=== PATIENT | male | born 1965 | race Caucasian/White ===

== ENCOUNTER 2017-07-11 20:50 | Emergency (ER) | payer OTHER ==
[~2017-07-11] VITALS: Ht 170.2 cm; Wt 81.8 kg
[2017-07-11 21:08] VITALS: Ht 170.2 cm; Wt 81.8 kg
[2017-07-11] MEDS ORDERED: BACITRACIN 0.9 GM OINT TOP ONE (22:00)
[2017-07-11] MEDS ORDERED: DIPHTH/TET/ACEL PERTUSS (ADULT) 0.5 ML VIAL IM* ONE (22:00)
[2017-07-11] MEDS ORDERED: HYDROCODONE/APAP (5/325) TAB PO ONE (22:00)
[2017-07-11] MEDS ORDERED: AMOXICILLIN/CLAV 875 MG TAB PO ONE (22:00)
[2017-07-11] MEDS ORDERED: BACITUD TOP (23:28)
--- NOTE | 2017-07-11 23:28 | ERD ---
ER Documentation Chief Complaint Date/Time DATE: 07/11/17 Chief Complaint Dog bite right foot HPI The patient is a 52-year-old male who presents to the Emergency Department with complaint of dog bite to his right foot. The patient reports that he was stepping down from his bed, when he accidentally stepped on his dog (lab/ lexiepaOnde), and his dog bit him on his right foot. He notes presence of a puncture wound to the plantar aspect of the foot, and an abrasion to the dorsum of the second toe. He states that initially, the wounds were bleeding, but after application of a pressure dressing, the bleeding has since resolved. He admits to associated pain, rated 7/10 in intensity, but notes that he has not yet taken any medication for pain relief. The dog is fully vaccinated, though the patient notes that he himself is not up-to-date on tetanus, and therefore decided to present to the ED to update his tetanus. He denies any numbness, paresthesia or weakness of the distal extremity. Denies restricted range of motion. Denies fevers, sweats, chills, nausea, vomiting, or any other complaints at this time. ROS All systems reviewed and are negative except as per history of present illness. Medications Home Meds Active Scripts Hydrocodone/Acetaminophen ([place] 5-325 Tablet) 1 Each Tablet, 1 EACH PO Q6, #6 TAB Prov:JOON KELLEY PA-C 07/11/17 Ibuprofen* (Motrin*) 600 Mg Tab, 600 MG PO Q6, #30 TAB Prov:JOON KELLEY PA-C 07/11/17 Amoxicillin/Potassium Clav (Amox-Clav 875-125 mg Tablet) 875-125 mg Tab, 1 TAB PO BID for 7 Days, #14 TAB Prov:JOON KELLEY PA-C 07/11/17 Bacitracin* (Bacitracin Oint (UD)*) 1 Applic Oint, 1 APPLIC TOP BID for 7 Days, PKT APPLY TO Prov:JOON KELLEY PA-C 07/11/17 Allergies Allergies: Coded Allergies: No Known Allergy (Unverified , 07/11/17) PMhx/Soc Medical and Surgical Hx: pt denies Medical Hx, pt denies Surgical Hx Hx Alcohol Use: Yes Hx Substance Use: No Hx Tobacco Use: Yes Smoking Status: Current some day smoker Physical Exam Vitals Vital Signs Date Time Temp Pulse Resp B/P Pulse Ox O2 Delivery O2 Flow Rate FiO2 07/11/17 21:08 98.9 120 18 173/107 95 Physical Exam Const: Well-developed, well-nourished, in no acute distress. Head: Atraumatic Eyes: Normal Conjunctiva ENT: Normal External Ears, Nose and Mouth. Neck: Supple. Resp: Clear to auscultation bilaterally Cardio: Regular rate and rhythm Abd: Soft, non tender, non distended. Skin: Superficial puncture wound to plantar aspect of right foot, near forefoot. Abrasion to proximal toe of right foot. No active bleeding. No foreign bodies. Ext: No clubbing, cyanosis, or edema. Dog bite to right foot - with puncture wound to plantar aspect and abrasion to dorsum. No active bleeding. Moving all toes. Sensation and motor grossly intact. Distal neurovascular status intact. DP and PT pulses 2+. Capillary refill is less than 2 seconds. Neur: Awake and alert Psych: Cooperative. Appropriate. Results 24 hrs Current Medications Medications (Trade) Dose Ordered Sig/[place] Route PRN Reason Start Time Stop Time Status Last Admin Dose Admin Diphtheria/ Tetanus/Acell Pertussis (Adacel) 0.5 ml ONCE ONCE IM* 07/11/17 22:00 07/11/17 22:03 DC 07/11/17 22:17 Acetaminophen/ Hydrocodone Bitart ([place] (5/325)) 1 tab ONCE ONCE PO 07/11/17 22:00 07/11/17 22:03 DC 07/11/17 22:17 Amoxicillin/ Clavulanate Potassium (Augmentin) 875 mg ONCE ONCE PO 07/11/17 22:00 07/11/17 22:03 DC 07/11/17 22:26 Bacitracin (Bacitracin Oint (Ud)) 1 applic ONCE ONCE TOP 07/11/17 22:00 07/11/17 22:03 DC 07/11/17 22:18 Procedures/MDM EMERGENCY DEPARTMENT COURSE: The patient was stable throughout the ED course. Tdap administered. The patient's wounds were thoroughly irrigated. No evidence of retained foreign body. X-ray imaging performed. Bacitracin and sterile dressing placed to the wounds. He was given a dose of [place], for pain, and his first dose of Augmentin (for prophylaxis) while in the ED. On reevaluation, the patient reports no new complaints. Appropriate wound care discussed, return precautions given. DIAGNOSTIC TESTS AND INTERPRETATION: PROCEDURE: XR Foot. CLINICAL INDICATION: Trauma. TECHNIQUE: AP, lateral and oblique views of the right foot was obtained. COMPARISON: There are no similar studies submitted for comparison. FINDINGS: There is normal bone mineralization. There is no acute fracture or dislocation. No osseous erosions are identified. The joint spaces are within normal limits. No radiopaque foreign bodies are seen. IMPRESSION:No acute fracture or dislocation. .Delgado Adams MD, MD Date Time Electronically viewed and signed by .Delgado Adams MD, on 07/12/2017 01:08 MEDICAL DECISION MAKING: This is a 52-year-old male presenting to the Emergency Department with abrasion and puncture wound status post dog bite to his lower extremity. The patient had no other abnormalities on physical examination. X-rays revealed no presence of retained foreign bodies, fractures , avulsions, gas or any other bony involvement. As the patient's abrasions and puncture wounds were minimal, they were copiously irrigated and bacitracin was applied. There was no need to close them as they were somewhat superficial with no current active bleeding. No large lacerations or skin avulsions present. Tdap was administered. After rest and administration of [place] and Augmentin, the patient reports no new complaints. Vital signs improved. Upon my review and interpretation of the patient's presentation and overall ER course, I believe the patient's symptoms are most consistent with wounds due to dog bite. There are no current signs of tendon laceration, tenosynovitis, large lacerations, open fracture, infection, retained foreign body or any other emergent medical condition. At this time, the patient is in stable condition and therefore can be discharged home with a prescription for [place], Bacitracin, Ibuprofen and Augmentin as prophylaxis, and strict return precautions for signs of infectious process, worsening or deteriorating condition. The patient has been instructed to follow up with a primary care provider for wound check, reevaluation and further management within 2 days or to return to the ER sooner for any worsening symptoms, including development of redness, warmth, swelling, drainage, fevers, vomiting, or any other concerning symptoms. I shared my medical decision making and plan with the patient at length and in great detail , and the patient verbally understands and agrees with the plan for further observation and care as an outpatient. At the time of discharge, all questions were answered. BLOOD PRESSURE: Patient's blood pressure was elevated (>120/80) but he appears to be stable without evidence of hypertensive emergency or urgency. The patient was counseled about the risks of hypertension and urged to pursue outpatient monitoring and therapy within a week with their primary care physician. Patient notes a history of hypertension in the past, but states that he has not taken his medication for a long time. Patient strongly urged to seek follow up with his primary medical provider. Risks of uncontrolled hypertension discussed. TOBACCO USE/SMOKING CESSATION: A discussion was held by me with the patient regarding smoking cessation. The risks of continued smoking, including hypertension, cardiac, cerebrovascular, and other end organ injury were discussed. Furthermore, the risk of emphysema, cancer, chronic bronchitis, and other pulmonary complications were emphasized. The risks and benefits of medical therapy including nicotine replacement therapy were discussed. The patient is strongly encouraged to pursue a smoking cessation program. Time spent in counseling 3 minutes. Departure Diagnosis: Primary Impression: Dog bite of left foot Encounter type: initial encounter Qualified Code: S91.352A - Dog bite of left foot, initial encounter Condition: Stable Patient Instructions: Caring for Your Wound, Dog Bite, Wound Care Additional Instructions: Follow up with your primary medical provider in 2 days for wound check, reevaluation and further management. Return to the ED sooner for any new or worsening symptoms. JOON KELLEY PA-C Jul 11, 2017 23:28
[2017-07-11] MEDS ORDERED: AMOX1TAB10 PO (23:29)
[2017-07-11] MEDS ORDERED: HYDR-906 PO (23:29)
[2017-07-11] MEDS ORDERED: IBUP-1542 PO (23:29)
--- NOTE | 2017-07-12 01:08 | RADRPT ---
PROCEDURE: XR Foot. CLINICAL INDICATION: Trauma. TECHNIQUE: AP, lateral and oblique views of the right foot was obtained. COMPARISON: There are no similar studies submitted for comparison. FINDINGS: There is normal bone mineralization. There is no acute fracture or dislocation. No osseous erosions are identified. The joint spaces are within normal limits. No radiopaque foreign bodies are seen. IMPRESSION: No acute fracture or dislocation. RPTAT: HIKT .Delgado Adams MD, MD Date Time Electronically viewed and signed by .Delgado Adams MD, on 07/12/2017 01:08 .T/
== END 2017-07-11 23:53 | disposition home or self-care (01) ==
LOC: FTE 20:50
DX: S91.352A Open bite, left foot, initial encounter (principal); F17.210 Nicotine dependence, cigarettes, uncomplicated; W54.0XXA Bitten by dog, initial encounter; Y92.9 Unspecified place or not applicable; Z23 Encounter for immunization
CPT/HCPCS: 73630; 90471; 90715; Z7502; Z7610

== ENCOUNTER 2019-06-02 15:53 | Emergency (ER) | payer OTHER ==
[~2019-06-02] VITALS: Wt 78.0 kg
[~2019-06-02 15:53] MED LIST: AMOX1TAB10 PO; BACITUD TOP; CPR3OO3.5 LEFT EYE; HYDR-4011 PO; IBUP-1542 PO
[2019-06-02] MEDS ORDERED: TETRACAINE 0.5% 4 ML OPH LEFT EYE ONE (17:30)
[2019-06-02] MEDS ORDERED: FLUORESCEIN STRIP LEFT EYE ONE (17:30)
[2019-06-02 18:37] VITALS: BP 128/72; PULSE 64; RESP 16
--- NOTE | 2019-06-02 20:49 | ERD ---
ER Documentation Chief Complaint Chief Complaint LEFT EYE POSSIBLE FOREIGH BODY HPI 54-year-old male presents emergency department complaining of metal foreign body to his left eye for the past 1 day. 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 He reports associated pain which is rated 5/10 in severity. He denies any diplopia, visual changes, fevers, chills, or other symptoms at this time. He does not wear contacts or glasses. He denies any medical history. ROS All systems reviewed and are negative except as per history of present illness. Medications Home Meds Active Scripts Ciprofloxacin Opht* (Ciloxan*) 0.3%-3.5 Opht Oint, 1 APPLIC LEFT EYE TID for 7 Days, #1 BOTTLE Prov:RADHA RANGEL PA-C 06/02/19 Hydrocodone/Acetaminophen ([place] 5-325 Tablet) 1 Each Tablet, 1 EACH PO Q6, #6 T AB Prov:JOON KELLEY PA-C 07/11/17 Ibuprofen* (Motrin*) 600 Mg Tab, 600 MG PO Q6, #30 TAB Prov:JOON KELLEY PA-C 07/11/17 Amoxicillin/Potassium Clav (Amox-Clav 875-125 mg Tablet) 875-125 mg Tab, 1 TAB PO BID for 7 Days, #14 TAB Prov:JOON KELLEY PA-C 07/11/17 Bacitracin* (Bacitracin Oint (UD)*) 1 Applic Oint, 1 APPLIC TOP BID for 7 Days, PKT APPLY TO Prov:JOON KELLEY PA-C 07/11/17 Allergies Allergies: Coded Allergies: No Known Allergy (Unverified , 07/11/17) PMhx/Soc Medical and Surgical Hx: pt denies Medical Hx, pt denies Surgical Hx Hx Alcohol Use: Yes Hx Substance Use: No Hx Tobacco Use: Yes Smoking Status: Current every day smoker FmHx Family History: No diabetes Physical Exam Vitals Vital Signs Date Temp Pulse Resp B/P (MAP) Pulse Ox O2 O2 Flow FiO2 Time Delivery Rate 06/02/19 98.1 64 16 128/72 99 Room Air 18:37 (90) 06/02/19 98.1 66 18 134/70 99 15:56 (91) Physical Exam Const: No acute distress Head: Atraumatic Eyes: Left conjunctival foreign body noted at the 3 o'clock position just lateral to the pupil. Left conjunctival injection noted. Extraocular movements intact bilaterally. Right eye is normal in appearance. ENT: Normal External Ears, Nose and Mouth. Neck: Full range of motion. No meningismus. Resp: no respiratory distress. Skin: No petechiae or rashes Ext: No cyanosis, or edema Neur: Awake and alert Psych: Normal Mood and Affect Results 24 hrs Current Medications Medications Dose Sig/[place] Start Time Status Last (Trade) Ordered Route PRN Stop Time Admin Dose Reason Admin Tetracaine 1 drop ONCE ONCE 06/02/19 DC HCl LEFT EYE 17:30 06/02/19 (Tetracaine 17:31 0.5% Steri-Unit Mine) Fluorescein 1 strip ONCE ONCE 06/02/19 DC Sodium LEFT EYE 17:30 06/02/19 ([id number]-Inmw 17:31 p) Procedures/MDM 54-year-old male presents emergency department complaining of foreign body to the left eye. Eye Exam w/ Wood's Lamp - bilateral: Visual Acuity: 20/70 left, 20/70 right Visual Parmar: Intact in all four quadrants bilaterally Lac ducts/glands: No swelling Lids w/ evertion: Normal, no foreign body Conj/[place]: Metallic foreign body noted at the 3 o'clock position of the left eye. Foreign body was successfully removed using 18-gauge needle after benzocaine was instilled into the eye. No evidence of corneal abrasion noted. Anterior Chamber: Clear Ophthalmologic Assessment: Patient's ocular symptoms have stabilized while they have been evaluated in the department and are appropriate for outpatient work up. No evidence of ruptured globe, retinal detachment, acute angle closure glaucoma, or deep space infection. Plan for 24 hour ophthalmologic follow up. No evidence of life-threatening pathology at time of discharge. Pt/family in agreement with discharge plan/diagnosis. Pt/family advised to return immediately with any new or worsening symptoms. Follow-up with primary care physician within the next 1-2 days. Disclaimer: Inadvertent spelling and grammatical errors are likely due to EHR/dictation software use and do not reflect on the overall quality of patient care. Also, please note that the electronic time recorded on this note does not necessarily reflect the actual time of the patient encounter. Departure Diagnosis: Primary Impression: Foreign body of left eye Encounter type: initial encounter Qualified Codes: T15.92XA - Foreign body on external eye, part unspecified, left eye, initial encounter Condition: Fair Patient Instructions: Corneal Foreign Body, Removed Referrals: [facility] Hours: Wed - Wed 9:00 AM - 5:00 PM Additional Instructions: Specialist:Usted tiene mickey condicin mdica que requiere que antonino a un especialista dentro de los prximos 1-2 bello.POR FAVOR,CON FOSTER SEGUIMIENTO DE PRIMARIA PHSICIAN refferal. SI USTED NO TIENE UN MDICO GENERAL Y / O USTED NO PUEDE PAGAR joao a un mdico,los siguientes ballard RECURSOS sido suministrado a usted. ES FOSTER RESPONSABILIDAD PARA SER VISTOS POR EL ESPECIALISTA: OPTHALMOLOGY RADHA RANGEL PA-C Jun 02, 2019 20:49
== END 2019-06-02 18:37 | disposition home or self-care (01) ==
LOC: FTE 15:53
DX: T15.92XA Foreign body on external eye, part unspecified, left eye, initial encounter (principal); X58.XXXA Exposure to other specified factors, initial encounter; Y92.9 Unspecified place or not applicable; Y99.9 Unspecified external cause status
CPT/HCPCS: 65205; Z7502; Z7610